=== PATIENT | female | born 1965 | race Caucasian/White ===

== ENCOUNTER 2017-09-01 12:27 | Inpatient (IN) | payer MEDICARE, OTHER ==
[2017-09-01 13:14] LABS: #Lymphocytes 1.4 thou/uL (1.20-3.40); #Monocytes 1.3 thou/uL (0.11-0.59); %Basophils 0.4 % (0.0-1.0); %Eosinophils 0.1 % (0.0-10.0); %Lymphocytes 13.2 % (21.0-51.0); %Monocytes 11.8 % (0.0-10.0); %Neutrophils 74.5 % (42.0-75.0); Hemoglobin 14.3 g/dL (12.0-16.0); Mean Corpuscular HGB CONC 34.8 g/dL (32.0-36.0); Mean Corpuscular Hemoglobin 30.2 pg (27.0-31.0); Mean Corpuscular Volume 86.9 fL (78.0-98.0); Mean Platelet Volume 8.3 fL (7.4-10.4); Platelet Count 165 thou/uL (130-400); RBC Distribution Width 13.9 % (11.5-14.5); Red Blood Cell (RBC) Count 4.74 mill/uL (4.20-5.40); White Blood Cell (WBC) Count 10.7 thou/uL (4.8-10.8)
[2017-09-01 13:36] LABS: ALT (SGPT) 58 U/L (8-55); AST (SGOT) 54 U/L (5-34); Albumin 4.1 g/dL (3.5-5.0); Alkaline Phosphatase 221 U/L (40-150); Anion Gap 20 mmol/L (10-20); BUN (Urea Nitrogen) 13 mg/dL (9.8-20.1); CK (CPK) 57 U/L (29-168); Calc. Creatinine Clearance 0 mL/min (70-130); Calcium 9.2 mg/dL (7.8-10.44); Carbon Dioxide 18 mmol/L (22-29); Chloride 90 mmol/L (98-107); Estimated GFR-MDRD 48; Glucose 470 mg/dL (70-105); Lipase 14 U/L (8-78); Protein, Total 8.1 g/dL (6.0-8.3); Sodium 124 mmol/L (136-145)
[2017-09-01 13:41] LABS: CKMB 0.2 ng/mL (0-6.6); Troponin I Less than 0.010 ng/mL (< 0.028)
--- NOTE | 2017-09-01 13:48 | RAD ---
CHEST UPRIGHT PORTABLE: Date: 09/01/17 HISTORY: 52-year-old female with history of weakness, dizziness, subjective fever, and diaphoresis. History of diabetes mellitus. COMPARISON: 04/21/16. FINDINGS: Minimal horizontal linear parenchymal changes noted in the right lower mid lung zone, having more the appearance of some subsegmental atelectasis, although the possibility of some mild atypical pneumoni a or pneumonitis is a possibility. The left lung is clear. Heart size is normal. IMPRESSION: Minimal horizontal linear parenchymal changes in the right mid lower lung zone, having more the appea eusebia of chronic change or subsegmental atelectasis. No other acute process. These changes are new or certainly more prominent than on the prior 04/21/16 study. POS: [facility]
[2017-09-01] MEDS ORDERED: Ibuprofen 800 MG TAB ONE (15:06)
[2017-09-01 15:13] LABS: Bilirubin Negative (Negative); Blood, Urine Small (Negative); Clarity CLOUDY (Clear); Glucose, Urine (Dipstick) >=1000 mg/dL (Negative); Leukocyte Moderate (Negative); Nitrite Negative (Negative); Protein, Urine (Dipstick) Trace mg/dL (Neg-Trace); Specific Gravity, Urine 1.023 (1.002-1.036)
[2017-09-01 15:18] LABS: Bacteria/HPF 4+ HPF (None Seen); Hyaline Casts/LPF 0-3 HYALINE CAST LPF (0-3 Hyaline); Pathc Cast-AUWi Flag 0.29 (0-2.49); RBC/HPF 0-3 HPF (0-3); Squamous Epithelial 0-3 HPF (0-3); Yeast-AUWi Flag 24.2 (0-25.0)
--- NOTE | 2017-09-01 15:23 | RAD ---
2 VIEWS OF ABDOMEN: Date: 09/01/17 INDICATION: Subjective fever, constipation, diaphoresis, weakness, and dizziness. FINDINGS: Left lateral decubitus and supine images of the abdomen demonstrate hernia mesh overlying the central abdomen. There are some gas-filled loops of small bowel with suggested differential air fluid levels suspicious for changes of some mild partial small bowel obstruction. There is a moderate amount of r etained stool within the colon. There is instrumentation involving the lower lumbar spine. Visualized aspects of the lungs are clear. IMPRESSION: A few gas and fluid-filled loops of small bowel within the upper central abdomen with suggestion of s ome differential fluid levels on the left lateral decubitus film may reflect a mild partial small bow el obstruction. There is a moderate amount of retained stool within the colon. The patient may benefi t from CT examination of the abdomen and pelvis for further characterization. POS: [facility]
[2017-09-01] MEDS ORDERED: Acetaminophen 500 MG TAB ONE (15:30)
[2017-09-01] MEDS ORDERED: Promethazine HCl 25 MG/ML VIAL ONE (15:48)
[2017-09-01] MEDS ORDERED: Acetaminophen 650 MG Suppository PR PRN (16:09)
[2017-09-01] MEDS ORDERED: RENALLY ADJUST ABX IVPB PRN (16:09)
[2017-09-01] MEDS ORDERED: Vancomycin HCl 1 GM in Premix Bag 1 BAG IVPB SCH (16:15)
[2017-09-01] MEDS ORDERED: Dextrose 50% Abboject 50 ML SYRINGE SLOW IVP PRN (16:34)
[2017-09-01] MEDS ORDERED: Dextrose 5% in Water 1,000 ML IV PRN (16:34)
[2017-09-01 16:41] LABS: BHCG - Serum Negative (NEGATIVE); Pregs Control Background? CLEAR/WHITE (CLR/WHITE); Pregs Control Bar Appear? YES (CONTROL BAR)
--- NOTE | 2017-09-01 17:22 | HP ---
PRIMARY CARE PROVIDER: Chelsi Alvarado NP CHIEF COMPLAINT: Abdominal pain. HISTORY OF PRESENT ILLNESS: Mr. Pastor is a pleasant 52-year-old lady who was seen at [facility] on 09/01/2017. She reports pain across her upper abdomen over the last 2 days. It is also radiating to her right fl ank now. She describes it as sharp, 9/10 at its worst, accompanied by nausea, but not by vomiting. She reports chronic constipation, since that it has been going on for the last 2 years. She denies a ny chest pain or shortness of breath. She reports fevers at home over the last 2 days. She reports that when she checked her temperature, it was 102 degrees Fahrenheit. REVIEW OF SYSTEMS: All other systems reviewed and found to be negative. PAST MEDICAL HISTORY: Hypothyroidism; anxiety; depression; bipolar disorder; hypertension; degenerat stephany joint disease; chronic low back pain, on chronic narcotics; gastroesophageal reflux disease; dysl ipidemia; obesity; asthma and chronic headaches. PAST SURGICAL HISTORY: Back surgery in 2004, cholecystectomy, umbilical hernia repair and s ection. ALLERGIES: ASPIRIN, IODINE, ERYTHROMYCIN, LATEX, SHELLFISH, and TYLENOL. The patient reports that s he is only allergic to TYLENOL FORMULATION ACETAMINOPHEN and in the past has taken acetaminophen in o ther forms without any reaction. Reaction to TYLENOL is rash. HOME MEDICATIONS: BuSpar 30 mg 2 times a day, clonidine 0.1 mg 2 times a day, Flexeril 10 mg daily, levothyroxine 100 mcg daily, Nexium 40 mg daily, Henrietta 1-2 tablets every 6 hours as needed, Lyrica 50 mg 3 times a day, oxycodone 30 mg 3 times a day, lisinopril/hydrochlorothiazide 20/12.5 mg daily, al buterol inhalation p.r.n. FAMILY HISTORY: Coronary artery disease in her father and brother. SOCIAL HISTORY: The patient reports rare alcohol use. She denies any tobacco use or recreational dr ug use. PHYSICAL EXAMINATION: GENERAL: Mr. Pastor is awake and alert, not in acute distress. VITAL SIGNS: Blood pressure is 150/107, pulse 129, respiratory rate 22, temperature 102 degrees Fahr enheit, and oxygen saturation 94% on room air. She is obese. EYES: No scleral icterus. No conjunctival pallor. ENT: Moist mucosal membranes, no oropharyngeal erythema or exudates. NECK: Supple, nontender. Trachea is midline. RESPIRATORY: Accessory muscles of breathing are not active. Chest wall movements are symmetric bila terally. LUNGS: Clear to auscultation without wheeze, rhonchi or crepitations. CARDIOVASCULAR: S1 and S2 are heard, regular and tachycardic. Peripheral pulses palpable. No carot id bruit, no pericardial rub. ABDOMEN: Distended, nontender, Conway sign is negative, bowel sounds sluggish, no hepatomegaly, no s plenomegaly. NEUROLOGIC: Cranial nerves II-XII intact. Deep tendon reflexes 2+. MUSCULOSKELETAL: Power is 5/5 in all 4 extremities. LYMPHATIC: No cervical lymphadenopathy. PSYCHIATRIC: Normal mood, normal affect. The patient is oriented to person, place, and time. DATABASE: Mr. Pastor's labs and investigations were reviewed. I reviewed her electrocardiogram, which shows sinus tachycardia, no ST changes to suggest an acute coronary syndrome. I also reviewed her chest x-ray, which does not show any pulmonary infiltrates. She also had abdominal x-rays, which show findings consistent with mild partial small-bowel obstruction. Radiologist recommends CT exami nation of the abdomen and pelvis for further characterization. She has normal white count, normal he moglobin, normal platelet count, decreased sodium of 124, elevated glucose of 458, decreased carbon d ioxide of 18, elevated creatinine of 1.18, last known creatinine 0.91 on 05/23/2014, elevated AST of 54, elevated ALT of 58, and these were elevated in the past as well, elevated alkaline phosphatase of 221, last known alkaline phosphatase is normal at 98 on 03/19/2017, normal troponin I, normal lipase and urinalysis that is positive for glucose, ketones, blood, and leukocyte esterase. ASSESSMENT AND PLAN: Mr. Pastor is a pleasant 52-year-old lady who was seen at [facility] on 09/01/2017. Her problem list includes: 1. Sepsis: She is presenting with sepsis, most likely source of infection in the urinary tract, alt willy other sources including intra-abdominal sources cannot be ruled out at this time. She will be admitted to the hospital for further management including intravenous fluids and intravenous antibiot ics. 2. Urinary tract infection. Start Zosyn and vancomycin to cover urinary and other sources. Follow cultures. 3. Abdominal pain: The patient will need a bowel obstruction ruled out. She is currently awaiting CT scan of the abdomen and pelvis as ordered by emergency room physician. 4. Hypothyroidism: Continue Synthroid when patient is able to take oral medications. 5. Hyponatremia: At least partially reflective of hyperglycemia. Start patient on Accu-Cheks and i nsulin sliding scale, continue intravenous fluids. 6. Acute renal insufficiency: Continue IV fluids, hold nephrotoxic medications and recheck creatini ne and electrolytes. 7. Hyperglycemia: The patient does not have a formal diagnosis of diabetes mellitus. Check hemoglo bin A1c, start patient on Accu-Cheks and insulin sliding scale. Anion gap is in the normal range. Many thanks for allowing me to participate in your patient's care. Please feel free to contact me wi th any questions or concerns. LEVEL OF RISK: High. LEVEL OF COMPLEXITY: High.
[2017-09-01] MEDS ORDERED: Piperacillin/Tazobactam 4.5 GM VIAL ONE (17:55)
[2017-09-01] MEDS ORDERED: cefTRIAXone\\ROCEPHIN 1 GM VIAL ONE (17:55)
--- NOTE | 2017-09-01 17:58 | CT ---
CT OF ABDOMEN AND PELVIS 09/01/17 COMPARISON: 12/11/10. HISTORY: Nausea, pain and headache. TECHNIQUE: Serial axial CT imaging at 5 mm intervals from lung bases through pubic symphysis with oral contrast. Coronal reformatted imaging obtained. FINDINGS: The lack of IV contrast limits assessment of the imaged viscera, the vascular structures, and for lym phadenopathy. The imaged lung bases are unremarkable. Cholecystectomy clips are present. No free intraperitoneal ai r is noted. Metallic densities are seen along the anterior aspect of the abdominal wall, evidence of prior hernia repair. Limited assessment of the liver, spleen, pancreas, adrenal glands, and kidneys is unremarkable with n o acute findings seen. No evidence for bowel inflammatory change or obstruction is seen. Review of the osseous structures demonstrates no worrisome lytic or blastic lesion. There is posterio r fusion hardware at the lumbosacral junction. IMPRESSION: No acute findings. POS: [facility]
[2017-09-01] MEDS: Piperacillin/Tazobactam 4.5 GM in Sodium Chloride 0.9% 100 ML IVPB SCH (19:37)
[2017-09-01] MEDS: Sodium Chloride 0.9% 1,000 ML IV SCH (19:38)
[2017-09-01 20:56] VITALS: BMI 45.8
[2017-09-01] MEDS ORDERED: Piperacillin/Tazobactam 4.5 GM in Sodium Chloride 0.9% 100 ML IVPB SCH (22:00)
[2017-09-01] MEDS ORDERED: Meropenem 1 GM in Sodium Chloride 0.9% 100 ML IVPB SCH (22:00)
[2017-09-01] MEDS: Ondansetron ODT 4 MG TAB PO PRN (22:22)
[2017-09-01] MEDS: HYDROcodone/Acetaminophen 10/325 mg Tablet PO PRN (22:36)
[2017-09-02] MEDS: Fioricet 325/50/40 mg Tablet PO PRN ×5 (00:25→23:28)
[2017-09-02] MEDS: Piperacillin/Tazobactam 4.5 GM in Sodium Chloride 0.9% 100 ML IVPB SCH ×3 (02:18→18:16)
[2017-09-02] MEDS: HYDROcodone/Acetaminophen 10/325 mg Tablet PO PRN ×4 (03:29→21:24)
[2017-09-02 04:21] LABS: #Monocytes 1.6 thou/uL (0.11-0.59); #Neutrophils 8.8 thou/uL (1.40-6.50); %Basophils 0.3 % (0.0-1.0); %Lymphocytes 22.3 % (21.0-51.0); %Monocytes 11.8 % (0.0-10.0); %Neutrophils 65.6 % (42.0-75.0); Hemoglobin 12.8 g/dL (12.0-16.0); Mean Corpuscular HGB CONC 34.8 g/dL (32.0-36.0); Mean Corpuscular Hemoglobin 30.6 pg (27.0-31.0); Mean Corpuscular Volume 88.1 fL (78.0-98.0); Platelet Count 157 thou/uL (130-400); RBC Distribution Width 13.9 % (11.5-14.5); Red Blood Cell (RBC) Count 4.18 mill/uL (4.20-5.40); White Blood Cell (WBC) Count 13.4 thou/uL (4.8-10.8)
[2017-09-02 04:35] LABS: Anion Gap 18 mmol/L (10-20); BUN (Urea Nitrogen) 8 mg/dL (9.8-20.1); Calc. Creatinine Clearance 151 mL/min (70-130); Calcium 8.5 mg/dL (7.8-10.44); Carbon Dioxide 20 mmol/L (22-29); Chloride 99 mmol/L (98-107); Estimated GFR-MDRD 71; Glucose 252 mg/dL (70-105); Potassium 3.7 mmol/L (3.5-5.1); Sodium 133 mmol/L (136-145)
[2017-09-02] MEDS: Enoxaparin Sodium 40 MG/0.4 ML SYRINGE SC SCH (09:00)
[2017-09-02] MEDS: Sodium Chloride 0.9% 1,000 ML IV SCH ×2 (12:11→21:26)
[2017-09-02] MEDS: Diclofenac Sodium 25 mg Tablet PO PRN ×2 (14:44→21:23)
[2017-09-02] MEDS: Metoclopramide HCl 10 MG TAB PO PRN ×2 (14:58→21:23)
--- NOTE | 2017-09-02 16:02 | PDOC.PN ---
- Subjective Encounter Start Date: 09/02/17 Encounter Start Time: 12:00 Pt seen for followup re: sepsis. Feels better. No fevers, cough or chills. Abdo pain is better. Has headache, describes it as chronic migraine. - Objective Vital Signs & Weight: Vital Signs (12 hours) Temp Pulse Resp BP Pulse Ox 09/02/17 11:00 98 F 88 16 142/86 H 98 09/02/17 09:00 98.0 F 82 16 94 L 09/02/17 08:25 98 F 89 18 132/85 98 09/02/17 05:40 97.9 F 89 18 132/85 98 Weight Admit Weight 266 lb 12 oz Weight 267 lb 0.029 oz I&O: 09/01/17 09/02/17 09/03/17 06:59 06:59 06:59 Intake Total 1125 Balance 1125 Result Diagrams: 09/02/17 03:52 09/02/17 03:52 Additional Labs: Accuchecks 09/02/17 09/02/17 09/01/17 11:13 05:41 22:32 POC Glucose 214 H 230 H 266 H Phys Exam - Physical Examination Morbid obesity HEENT: moist MMs, sclera anicteric, oral pharynx no lesions, 2+ tonsils Neck: no nodes, no JVD, supple, full ROM Respiratory: no wheezing, no rales, no rhonchi, clear to auscultation bilateral Cardiovascular: RRR, no rub S1, S2 Gastrointestinal: soft, non-tender, positive bowel sounds distention Neurological: moves all 4 limbs Psychiatric: normal affect, A&O x 3 Dx/Plan (1) Sepsis Code(s): A41.9 - SEPSIS, UNSPECIFIED ORGANISM Status: Acute Comment: due to UTI (2) UTI (urinary tract infection) Status: Acute Comment: continue IV antibiotics as below, follow cultures (3) Abdominal pain Code(s): R10.9 - UNSPECIFIED ABDOMINAL PAIN Status: Acute Comment: Improving , CT abdo/pelvis unremarkable (4) Hypothyroidism Code(s): E03.9 - HYPOTHYROIDISM, UNSPECIFIED Status: Chronic Comment: continue synthroid (5) Hypertension Code(s): I10 - ESSENTIAL (PRIMARY) HYPERTENSION Status: Chronic Comment: monitor vital signs, titrate antihypertensives as needed (6) GERD (gastroesophageal reflux disease) Code(s): K21.9 - GASTRO-ESOPHAGEAL REFLUX DISEASE WITHOUT ESOPHAGITIS Status: Chronic Comment: continue PPI (7) Migraine Code(s): G43.909 - MIGRAINE, UNSP, NOT INTRACTABLE, WITHOUT STATUS MIGRAINOSUS Status: Chronic Comment: continue home medications - Plan * . Review of Systems - Review of Systems Constitutional: negative: fever, chills, sweats, weakness, malaise Respiratory: negative: Cough, Shortness of Breath, Hemoptysis, Pleuritic Pain, Sputum Cardiovascular: negative: chest pain, palpitations, orthopnea, paroxysmal nocturnal dyspnea, edema, light headedness Gastrointestinal: Abdominal Pain, Constipation. negative: Nausea, Vomiting, Diarrhea, Melena, Hematochezia, Other Musculoskeletal: negative: Neck Pain, Shoulder Pain, Arm Pain, Back Pain, Hand Pain, Leg Pain, Foot Pain Skin: negative: Rash, Lesions, Hector, Bruising - Medications/Allergies Allergies/Adverse Reactions: Allergies Allergy/AdvReac Type Severity Reaction Status Date / Time aspirin Allergy Intermediate Hives Verified 11/09/15 18:12 iodine Allergy Intermediate Verified 10/22/12 21:55 acetaminophen [From Tylenol] Allergy Mild Verified 10/22/12 21:55 latex Allergy Mild Verified 10/22/12 21:56 shellfish derived Allergy Unknown Anaphylaxis Verified 09/02/17 00:19 azithromycin [From Zithromax] Allergy Verified 10/22/12 21:54 morphine Allergy Verified 09/01/17 20:55 Medications: Current Medications Acetaminophen/Butalbital/Caffeine (Fioricet) 1 tab PO Q4H PRN PRN Reason: Migraine Headache Stop: 09/07/17 00:04 Last Admin: 09/02/17 13:18 Dose: 1 tab Hydrocodone Bitart/Acetaminophen (Provencal 10/325) 1 tab PO Q4H PRN PRN Reason: Migraine Headache Last Admin: 09/02/17 14:43 Dose: 1 tab Dextrose/Water (Dextrose 50%) 25 gm SLOW IVP PRN PRN PRN Reason: Hypoglycemia Diclofenac Sodium (Voltaren) 50 mg PO QIDPRN PRN PRN Reason: Pain Last Admin: 09/02/17 14:44 Dose: 50 mg Enoxaparin Sodium (Lovenox) 40 mg SC 0900 STEVE Last Admin: 09/02/17 09:00 Dose: 40 mg Glucagon (Glucagon) 1 mg IM PRN PRN PRN Reason: Hypoglycemia Sodium Chloride (Normal Saline 0.9%) 1,000 mls @ 70 mls/hr IV .[id number] [facility] Last Admin: 09/02/17 12:11 Dose: 1,000 mls Dextrose/Water (D5w) 1,000 mls @ 0 mls/hr IV .Q0M PRN; As Directed PRN Reason: Hypoglycemia Vancomycin HCl 2 gm/ Sodium (Chloride) 500 mls @ 250 mls/hr IVPB 1800 [facility] Last Admin: 09/01/17 21:03 Dose: 500 mls Piperacillin Sod/Tazobactam (Sod 4.5 gm/ Sodium Chloride) 100 mls @ 200 mls/hr IVPB 0200,1000,1800 [facility] Last Admin: 09/02/17 12:08 Dose: 100 mls Insulin Human Lispro (Humalog) 0 units SC .MILD SLIDING SCALE PRN PRN Reason: Mild Correctional Scale Metoclopramide HCl (Reglan) 5 mg PO QIDPRN PRN PRN Reason: NAUSEA Last Admin: 09/02/17 14:58 Dose: 5 mg Miscellaneous Medication (Pharmacy To Dose) 1 each IVPB PRN PRN PRN Reason: Pharmacy to dose Ondansetron HCl (Zofran Odt) 4 mg PO Q6H PRN PRN Reason: Nausea/Vomiting Last Admin: 09/01/17 22:22 Dose: 4 mg Sodium Chloride (Flush - Normal Saline) 10 ml IVF Q12HR STEVE Last Admin: 09/02/17 09:14 Dose: Not Given Sodium Chloride (Flush - Normal Saline) 10 ml IVF PRN PRN PRN Reason: Saline Flush
[2017-09-02] MEDS: Promethazine HCl 25 MG in Sodium Chloride 0.9% 50 ML IVPB PRN (20:43)
[2017-09-03] MEDS: Piperacillin/Tazobactam 4.5 GM in Sodium Chloride 0.9% 100 ML IVPB SCH ×3 (01:05→17:52)
[2017-09-03] MEDS: Sodium Chloride 0.9% 1,000 ML IV SCH ×2 (05:15→23:34)
[2017-09-03 05:28] LABS: #Eosinphils 0.1 thou/uL (0.0-0.7); #Lymphocytes 2.3 thou/uL (1.20-3.40); #Monocytes 1.3 thou/uL (0.11-0.59); #Neutrophils 5.6 thou/uL (1.40-6.50); %Basophils 0.4 % (0.0-1.0); %Eosinophils 0.5 % (0.0-10.0); %Lymphocytes 25.2 % (21.0-51.0); %Monocytes 13.9 % (0.0-10.0); %Neutrophils 59.9 % (42.0-75.0); Mean Corpuscular HGB CONC 33.1 g/dL (32.0-36.0); Mean Corpuscular Hemoglobin 28.9 pg (27.0-31.0); Mean Corpuscular Volume 87.5 fL (78.0-98.0); Platelet Count 162 thou/uL (130-400); RBC Distribution Width 13.6 % (11.5-14.5); Red Blood Cell (RBC) Count 4.13 mill/uL (4.20-5.40); White Blood Cell (WBC) Count 9.3 thou/uL (4.8-10.8)
[2017-09-03 05:34] LABS: Anion Gap 17 mmol/L (10-20); BUN (Urea Nitrogen) 6 mg/dL (9.8-20.1); Calc. Creatinine Clearance 159 mL/min (70-130); Carbon Dioxide 18 mmol/L (22-29); Chloride 104 mmol/L (98-107); Estimated GFR-MDRD 76; Glucose 227 mg/dL (70-105); Potassium 3.3 mmol/L (3.5-5.1); Sodium 136 mmol/L (136-145)
[2017-09-03] MEDS: HYDROcodone/Acetaminophen 10/325 mg Tablet PO PRN ×2 (06:04→10:10)
[2017-09-03] MEDS: Enoxaparin Sodium 40 MG/0.4 ML SYRINGE SC SCH (07:50)
[2017-09-03] MEDS: Metoclopramide HCl 10 MG TAB PO PRN (08:22)
[2017-09-03] MEDS: Promethazine HCl 25 MG in Sodium Chloride 0.9% 50 ML IVPB PRN (08:22)
[2017-09-03] MEDS: Diclofenac Sodium 25 mg Tablet PO PRN (08:22)
[2017-09-03] MEDS ORDERED: clonazePAM 0.5 MG TAB PO PRN (09:14)
[2017-09-03] MEDS ORDERED: Metoclopramide 10 MG/10 ML UDCUP PO PRN (09:14)
[2017-09-03] MEDS ORDERED: ACETAMINOPHEN PO PRN (09:14)
[2017-09-03] MEDS ORDERED: BUTALBITAL PO PRN (09:14)
[2017-09-03] MEDS ORDERED: clonazePAM 1 MG TAB PO PRN (09:14)
[2017-09-03] MEDS: HYDROmorphone 2 MG TAB PO SCH ×3 (11:41→23:32)
[2017-09-03] MEDS: HumaLOG 300 UNITS/3 ML VIAL SC PRN ×3 (11:42→20:30)
[2017-09-03] MEDS: HYDROcodone/Acetaminophen 10/325 mg Tablet PO SCH ×3 (12:26→20:22)
[2017-09-03] MEDS ORDERED: DICLOFENAC POTASSIUM 50 MG PO SCH (13:00)
[2017-09-03] MEDS: Pregabalin 75 MG CAP PO SCH ×2 (15:01→20:23)
[2017-09-03] MEDS: Cyclobenzaprine 10 MG TAB PO SCH ×2 (15:02→20:22)
--- NOTE | 2017-09-03 17:20 | PDOC.PN ---
- Subjective Encounter Start Date: 09/03/17 Encounter Start Time: 08:20 Pt seen for followup re: sepsis. Feels better. No abdo pain. - Objective MAR Reviewed: Yes Vital Signs & Weight: Vital Signs (12 hours) Temp Pulse Resp BP Pulse Ox 09/03/17 16:45 97.8 F 89 18 110/72 95 09/03/17 11:28 99.0 F 104 H 16 135/78 96 09/03/17 10:00 98.9 F 110 H 09/03/17 08:00 98.9 F 110 H 16 09/03/17 07:37 101.1 F H 107 H 16 152/87 H 98 09/03/17 05:35 98.4 F 94 18 124/78 99 Weight Admit Weight 266 lb 12 oz Weight 267 lb 0.029 oz I&O: 09/02/17 09/03/17 09/04/17 06:59 06:59 06:59 Intake Total 1125 1789 480 Balance 1125 1789 480 Result Diagrams: 09/03/17 05:01 09/03/17 05:01 Additional Labs: Accuchecks 09/03/17 09/03/17 09/02/17 11:33 05:21 20:43 POC Glucose 226 H 224 H 282 H Phys Exam - Physical Examination Constitutional: NAD HEENT: moist MMs, sclera anicteric, oral pharynx no lesions, 2+ tonsils Neck: no nodes, no JVD, supple, full ROM Respiratory: no wheezing, no rales, no rhonchi, clear to auscultation bilateral Cardiovascular: RRR, no rub S1, S2 Gastrointestinal: soft, non-tender, no distention, positive bowel sounds Neurological: moves all 4 limbs Psychiatric: normal affect, A&O x 3 Dx/Plan (1) Sepsis Code(s): A41.9 - SEPSIS, UNSPECIFIED ORGANISM Status: Acute Comment: due to UTI, Improving (2) UTI (urinary tract infection) Status: Acute Comment: with Klebsiella. Pt continues to spike fevers, continue IV antibiotics today, reassess tomorrow. (3) Hypothyroidism Code(s): E03.9 - HYPOTHYROIDISM, UNSPECIFIED Status: Chronic Comment: on synthroid (4) Hypertension Code(s): I10 - ESSENTIAL (PRIMARY) HYPERTENSION Status: Chronic Comment: titrate antihypertensives as needed (5) GERD (gastroesophageal reflux disease) Code(s): K21.9 - GASTRO-ESOPHAGEAL REFLUX DISEASE WITHOUT ESOPHAGITIS Status: Chronic Comment: continue PPI (6) Migraine Code(s): G43.909 - MIGRAINE, UNSP, NOT INTRACTABLE, WITHOUT STATUS MIGRAINOSUS Status: Chronic Comment: continue home medications (7) Abdominal pain Code(s): R10.9 - UNSPECIFIED ABDOMINAL PAIN Status: Resolved - Plan * . Review of Systems - Review of Systems Constitutional: fever, chills. negative: sweats, weakness, malaise Respiratory: negative: Cough, Shortness of Breath, SOB with Excertion, Pleuritic Pain, Wheezing Cardiovascular: negative: chest pain, palpitations, orthopnea, paroxysmal nocturnal dyspnea, edema, light headedness Gastrointestinal: Nausea, Other. negative: Vomiting, Abdominal Pain, Diarrhea, Constipation, Melena, Hematochezia - Medications/Allergies Allergies/Adverse Reactions: Allergies Allergy/AdvReac Type Severity Reaction Status Date / Time aspirin Allergy Intermediate Hives Verified 11/09/15 18:12 iodine Allergy Intermediate Verified 10/22/12 21:55 acetaminophen [From Tylenol] Allergy Mild Verified 10/22/12 21:55 latex Allergy Mild Verified 10/22/12 21:56 shellfish derived Allergy Unknown Anaphylaxis Verified 09/02/17 00:19 azithromycin [From Zithromax] Allergy Verified 10/22/12 21:54 morphine Allergy Verified 09/01/17 20:55 Medications: Current Medications Acetaminophen/Butalbital/Caffeine (Fioricet) 1 tab PO Q4H PRN PRN Reason: Migraine Headache Stop: 09/07/17 00:04 Last Admin: 09/02/17 23:28 Dose: 1 tab Hydrocodone Bitart/Acetaminophen (Brodnax 10/325) 1 tab PO Q4H PRN PRN Reason: Migraine Headache Last Admin: 09/03/17 10:10 Dose: 1 tab Hydrocodone Bitart/Acetaminophen (Brodnax 10/325) 1 tab PO Q4HR [facility] Last Admin: 09/03/17 15:03 Dose: 1 tab Amlodipine Besylate (Norvasc) 5 mg PO DAILY STEVE Buspirone HCl (Buspar) 15 mg PO BID [facility]EV[facility] Chlorzoxazone (Parafon Dsc) 500 mg PO Q6HR [facility]EVE Last Admin: 09/03/17 12:23 Dose: 500 mg Clonazepam (Klonopin) 0.5 mg PO Q12H PRN PRN Reason: Anxiety Clonazepam (Klonopin) 1 mg PO PRN PRN PRN Reason: Anxiety Clonidine (Catapres) 0.1 mg PO BID [facility] Cyclobenzaprine HCl (Flexeril) 10 mg PO TID [facility] Last Admin: 09/03/17 15:02 Dose: 10 mg Dextrose/Water (Dextrose 50%) 25 gm SLOW IVP PRN PRN PRN Reason: Hypoglycemia Diclofenac Sodium (Voltaren) 50 mg PO QIDPRN PRN PRN Reason: Pain Last Admin: 09/03/17 08:22 Dose: 50 mg Enoxaparin Sodium (Lovenox) 40 mg SC 0900 [facility] Last Admin: 09/03/17 07:50 Dose: 40 mg Glucagon (Glucagon) 1 mg IM PRN PRN PRN Reason: Hypoglycemia Hydromorphone HCl (Dilaudid) 4 mg PO Q6HR [facility] Last Admin: 09/03/17 11:41 Dose: 4 mg Sodium Chloride (Normal Saline 0.9%) 1,000 mls @ 70 mls/hr IV .[id number] [facility] Last Admin: 09/03/17 05:15 Dose: 1,000 mls Dextrose/Water (D5w) 1,000 mls @ 0 mls/hr IV .Q0M PRN; As Directed PRN Reason: Hypoglycemia Piperacillin Sod/Tazobactam (Sod 4.5 gm/ Sodium Chloride) 100 mls @ 200 mls/hr IVPB 0200,1000,1800 [facility] Last Admin: 09/03/17 08:22 Dose: 100 mls Insulin Human Lispro (Humalog) 0 units SC .MILD SLIDING SCALE PRN PRN Reason: Mild Correctional Scale Last Admin: 09/03/17 11:42 Dose: 3 unit Levothyroxine Sodium (Synthroid) 100 mcg PO 0600 [facility] Lisinopril (Zestril) 20 mg PO DAILY [facility] Metoclopramide HCl (Reglan) 5 mg PO QIDPRN PRN PRN Reason: NAUSEA Last Admin: 09/03/17 08:22 Dose: 5 mg Metoclopramide HCl (Reglan) 5 mg PO QID PRN PRN Reason: Headache Miscellaneous Medication (Pharmacy To Dose) 1 each IVPB PRN PRN PRN Reason: Pharmacy to dose Ondansetron HCl (Zofran Odt) 4 mg PO Q6H PRN PRN Reason: Nausea/Vomiting Last Admin: 09/01/17 22:22 Dose: 4 mg Pantoprazole Sodium (Protonix) 40 mg PO DAILY STEVE (Butalbital/Acetaminophen [Bupap ] 1 Tablet) Hm Med 0 each PO Q4HR PRN PRN Reason: Headache (Diclofenac Potassium [Cambia] 50 Mg) Hm Med 0 each PO QID STEVE (Oxycodone Myristate [Xtampza Er] 18 Mg) Hm Med 0 each PO BID STEVE Pregabalin (Lyrica) 150 mg PO TID STEVE Last Admin: 09/03/17 15:01 Dose: 150 mg Quetiapine Fumarate (Seroquel) 25 mg PO QID [facility] Last Admin: 09/03/17 11:41 Dose: 25 mg Sodium Chloride (Flush - Normal Saline) 10 ml IVF Q12HR [facility] Last Admin: 09/03/17 07:51 Dose: Not Given Sodium Chloride (Flush - Normal Saline) 10 ml IVF PRN PRN PRN Reason: Saline Flush Venlafaxine HCl (Effexor Xr) 225 mg PO DAILY [facility]
[2017-09-03] MEDS: Ondansetron ODT 4 MG TAB PO PRN (17:54)
[2017-09-03] MEDS: cloNIDine 0.1 MG TAB PO SCH (20:21)
[2017-09-03] MEDS: busPIRone HCl 5 MG TAB PO SCH (20:22)
[2017-09-03] MEDS ORDERED: OXYCODONE MYRISTATE 18 MG PO SCH (21:00)
[2017-09-04] MEDS: HYDROcodone/Acetaminophen 10/325 mg Tablet PO SCH ×6 (01:22→20:24)
[2017-09-04] MEDS: Piperacillin/Tazobactam 4.5 GM in Sodium Chloride 0.9% 100 ML IVPB SCH (01:23)
[2017-09-04] MEDS: Fioricet 325/50/40 mg Tablet PO PRN (04:24)
[2017-09-04 05:20] LABS: Anion Gap 15 mmol/L (10-20); BUN (Urea Nitrogen) 5 mg/dL (9.8-20.1); Calc. Creatinine Clearance 163 mL/min (70-130); Calcium 9.1 mg/dL (7.8-10.44); Carbon Dioxide 21 mmol/L (22-29); Chloride 101 mmol/L (98-107); Estimated GFR-MDRD 78; Glucose 226 mg/dL (70-105); Sodium 134 mmol/L (136-145)
[2017-09-04] MEDS: HYDROmorphone 2 MG TAB PO SCH ×4 (05:26→23:01)
[2017-09-04] MEDS: Levothyroxine Sodium 100 MCG TAB PO SCH (05:26)
[2017-09-04] MEDS: HumaLOG 300 UNITS/3 ML VIAL SC PRN ×4 (05:28→20:28)
[2017-09-04 05:37] LABS: #Eosinphils 0.1 thou/uL (0.0-0.7); #Lymphocytes 2.4 thou/uL (1.20-3.40); #Monocytes 1.3 thou/uL (0.11-0.59); %Basophils 0.3 % (0.0-1.0); %Eosinophils 1.3 % (0.0-10.0); %Lymphocytes 27.5 % (21.0-51.0); %Monocytes 14.6 % (0.0-10.0); %Neutrophils 56.3 % (42.0-75.0); Hemoglobin 11.1 g/dL (12.0-16.0); Mean Corpuscular HGB CONC 32.9 g/dL (32.0-36.0); Mean Corpuscular Hemoglobin 29.2 pg (27.0-31.0); Mean Corpuscular Volume 88.6 fL (78.0-98.0); Mean Platelet Volume 8.3 fL (7.4-10.4); Platelet Count 155 thou/uL (130-400); Red Blood Cell (RBC) Count 3.81 mill/uL (4.20-5.40); White Blood Cell (WBC) Count 8.8 thou/uL (4.8-10.8)
[2017-09-04] MEDS: Pregabalin 75 MG CAP PO SCH ×3 (08:18→20:25)
[2017-09-04] MEDS: Amlodipine 5 MG TAB PO SCH (08:19)
[2017-09-04] MEDS: Cyclobenzaprine 10 MG TAB PO SCH ×3 (08:19→20:24)
[2017-09-04] MEDS: Venlafaxine HCl XR 75 MG CAP PO SCH (08:20)
[2017-09-04] MEDS: busPIRone HCl 5 MG TAB PO SCH ×2 (08:23→20:23)
[2017-09-04] MEDS: Lisinopril 20 MG TAB PO SCH (08:23)
[2017-09-04] MEDS: cloNIDine 0.1 MG TAB PO SCH ×2 (08:24→20:24)
[2017-09-04] MEDS: Enoxaparin Sodium 40 MG/0.4 ML SYRINGE SC SCH (08:24)
[2017-09-04] MEDS: Cefdinir 300 MG CAP PO SCH ×2 (11:17→20:23)
--- NOTE | 2017-09-04 15:04 | PDOC.PN ---
- Subjective Encounter Start Date: 09/04/17 Encounter Start Time: 08:20 Pt seen for followup re: UTI. Feels better. No chest pain, shortness of breath , fevers or chills. - Objective MAR Reviewed: Yes Vital Signs & Weight: Vital Signs (12 hours) Temp Pulse Resp BP BP Pulse Ox 09/04/17 11:23 97.8 F 99 18 125/75 92 L 09/04/17 08:24 114/76 09/04/17 08:23 114/76 09/04/17 08:19 91 114/76 09/04/17 08:00 98.8 F 91 18 92 L 09/04/17 07:41 98.8 F 91 18 114/76 92 L 09/04/17 04:00 97.9 F 85 16 105/71 94 L Weight Admit Weight 266 lb 12 oz Weight 267 lb 0.029 oz I&O: 09/03/17 09/04/17 09/05/17 06:59 06:59 06:59 Intake Total 1789 4270 Balance 1789 4270 Result Diagrams: 09/04/17 04:17 09/04/17 04:17 Additional Labs: Accuchecks 09/04/17 09/04/17 09/03/17 11:24 05:26 20:01 POC Glucose 239 H 215 H 260 H 09/03/17 16:45 POC Glucose 233 H Phys Exam - Physical Examination Morbid obesity HEENT: moist MMs, sclera anicteric, oral pharynx no lesions, 2+ tonsils Neck: no nodes, no JVD, supple, full ROM Respiratory: no wheezing, no rales, no rhonchi, clear to auscultation bilateral Cardiovascular: RRR, no rub S1, S2 Gastrointestinal: soft, non-tender, positive bowel sounds distention Neurological: moves all 4 limbs Psychiatric: normal affect, A&O x 3 Skin: no rash Dx/Plan (1) UTI (urinary tract infection) Status: Acute Comment: with Klebsiella. Switch to cefdinir, observe. Pt is improving, afebrile. (2) Hypothyroidism Code(s): E03.9 - HYPOTHYROIDISM, UNSPECIFIED Status: Chronic Comment: continue synthroid (3) Hypertension Code(s): I10 - ESSENTIAL (PRIMARY) HYPERTENSION Status: Chronic Comment: controlled (4) GERD (gastroesophageal reflux disease) Code(s): K21.9 - GASTRO-ESOPHAGEAL REFLUX DISEASE WITHOUT ESOPHAGITIS Status: Chronic Comment: stable (5) Migraine Code(s): G43.909 - MIGRAINE, UNSP, NOT INTRACTABLE, WITHOUT STATUS MIGRAINOSUS Status: Chronic Comment: continue home medications (6) Abdominal pain Code(s): R10.9 - UNSPECIFIED ABDOMINAL PAIN Status: Resolved (7) Sepsis Code(s): A41.9 - SEPSIS, UNSPECIFIED ORGANISM Status: Resolved - Plan * . Review of Systems - Review of Systems Constitutional: negative: fever, chills, sweats, weakness, malaise Respiratory: negative: Cough, Shortness of Breath, SOB with Excertion, Pleuritic Pain, Wheezing Cardiovascular: negative: chest pain, palpitations, orthopnea, paroxysmal nocturnal dyspnea, edema, light headedness Gastrointestinal: negative: Nausea, Vomiting, Abdominal Pain, Diarrhea, Constipation, Melena, Hematochezia Genitourinary: negative: Dysuria, Frequency, Incontinence, Hematuria, Retention Skin: negative: Rash, Lesions, Hector, Bruising - Medications/Allergies Allergies/Adverse Reactions: Allergies Allergy/AdvReac Type Severity Reaction Status Date / Time aspirin Allergy Intermediate Hives Verified 11/09/15 18:12 iodine Allergy Intermediate Verified 10/22/12 21:55 acetaminophen [From Tylenol] Allergy Mild Verified 10/22/12 21:55 latex Allergy Mild Verified 10/22/12 21:56 shellfish derived Allergy Unknown Anaphylaxis Verified 09/02/17 00:19 azithromycin [From Zithromax] Allergy Verified 10/22/12 21:54 morphine Allergy Verified 09/01/17 20:55 Medications: Current Medications Acetaminophen/Butalbital/Caffeine (Fioricet) 1 tab PO Q4H PRN PRN Reason: Migraine Headache Stop: 09/07/17 00:04 Last Admin: 09/04/17 04:24 Dose: 1 tab Hydrocodone Bitart/Acetaminophen ([place] 10/325) 1 tab PO Q4H PRN PRN Reason: Migraine Headache Last Admin: 09/03/17 10:10 Dose: 1 tab Hydrocodone Bitart/Acetaminophen ([place] 10/325) 1 tab PO Q4HR STEVE Last Admin: 09/04/17 12:47 Dose: 1 tab Amlodipine Besylate (Norvasc) 5 mg PO DAILY [facility] Last Admin: 09/04/17 08:19 Dose: 5 mg Buspirone HCl (Buspar) 15 mg PO BID [facility] Last Admin: 09/04/17 08:23 Dose: 15 mg Cefdinir (Omnicef) 300 mg PO BID [facility] Last Admin: 09/04/17 11:17 Dose: 300 mg Chlorzoxazone (Parafon Dsc) 500 mg PO Q6HR [facility] Last Admin: 09/04/17 12:14 Dose: 500 mg Clonazepam (Klonopin) 0.5 mg PO Q12H PRN PRN Reason: Anxiety Clonazepam (Klonopin) 1 mg PO PRN PRN PRN Reason: Anxiety Clonidine (Catapres) 0.1 mg PO BID [facility] Last Admin: 09/04/17 08:24 Dose: 0.1 mg Cyclobenzaprine HCl (Flexeril) 10 mg PO TID [facility] Last Admin: 09/04/17 08:19 Dose: 10 mg Dextrose/Water (Dextrose 50%) 25 gm SLOW IVP PRN PRN PRN Reason: Hypoglycemia Diclofenac Sodium (Voltaren) 50 mg PO QIDPRN PRN PRN Reason: Pain Last Admin: 09/03/17 08:22 Dose: 50 mg Enoxaparin Sodium (Lovenox) 40 mg SC 0900 [facility] Last Admin: 09/04/17 08:24 Dose: 40 mg Glucagon (Glucagon) 1 mg IM PRN PRN PRN Reason: Hypoglycemia Hydromorphone HCl (Dilaudid) 4 mg PO Q6HR [facility] Last Admin: 09/04/17 11:18 Dose: 4 mg Sodium Chloride (Normal Saline 0.9%) 1,000 mls @ 70 mls/hr IV .[id number] [facility] Last Admin: 09/03/17 23:34 Dose: 1,000 mls Dextrose/Water (D5w) 1,000 mls @ 0 mls/hr IV .Q0M PRN; As Directed PRN Reason: Hypoglycemia Insulin Human Lispro (Humalog) 0 units SC .MILD SLIDING SCALE PRN PRN Reason: Mild Correctional Scale Last Admin: 09/04/17 12:13 Dose: 3 unit Levothyroxine Sodium (Synthroid) 100 mcg PO 0600 [facility] Last Admin: 09/04/17 05:26 Dose: 100 mcg Lisinopril (Zestril) 20 mg PO DAILY [facility] Last Admin: 09/04/17 08:23 Dose: 20 mg Metoclopramide HCl (Reglan) 5 mg PO QIDPRN PRN PRN Reason: NAUSEA Last Admin: 09/03/17 08:22 Dose: 5 mg Metoclopramide HCl (Reglan) 5 mg PO QID PRN PRN Reason: Headache Miscellaneous Medication (Pharmacy To Dose) 1 each IVPB PRN PRN PRN Reason: Pharmacy to dose Ondansetron HCl (Zofran Odt) 4 mg PO Q6H PRN PRN Reason: Nausea/Vomiting Last Admin: 09/03/17 17:54 Dose: 4 mg Pantoprazole Sodium (Protonix) 40 mg PO DAILY [facility] Last Admin: 09/04/17 08:22 Dose: 40 mg (Butalbital/Acetaminophen [Bupap ] 1 Tablet) Hm Med 0 each PO Q4HR PRN PRN Reason: Headache (Diclofenac Potassium [Cambia] 50 Mg) Hm Med 0 each PO QID [facility] (Oxycodone Myristate [Xtampza Er] 18 Mg) Hm Med 0 each PO BID [facility] Potassium Chloride (K-Dur) 40 meq PO Q6H [facility] Stop: 09/04/17 21:01 Pregabalin (Lyrica) 150 mg PO TID [facility] Last Admin: 09/04/17 08:18 Dose: 150 mg Quetiapine Fumarate (Seroquel) 25 mg PO QID [facility] Last Admin: 09/04/17 12:48 Dose: 25 mg Sodium Chloride (Flush - Normal Saline) 10 ml IVF Q12HR [facility] Last Admin: 09/04/17 08:25 Dose: Not Given Sodium Chloride (Flush - Normal Saline) 10 ml IVF PRN PRN PRN Reason: Saline Flush Venlafaxine HCl (Effexor Xr) 225 mg PO DAILY [facility] Last Admin: 09/04/17 08:20 Dose: 225 mg
[2017-09-04] MEDS: Sodium Chloride 0.9% 1,000 ML IV SCH (15:36)
[2017-09-04] MEDS: Potassium Chloride 20 MEQ TAB PO SCH ×2 (17:30→23:00)
[2017-09-05] MEDS: HYDROcodone/Acetaminophen 10/325 mg Tablet PO SCH ×3 (00:49→09:12)
[2017-09-05] MEDS: Fioricet 325/50/40 mg Tablet PO PRN (00:50)
[2017-09-05] MEDS: Sodium Chloride 0.9% 1,000 ML IV SCH (04:40)
[2017-09-05] MEDS: Levothyroxine Sodium 100 MCG TAB PO SCH (05:29)
[2017-09-05] MEDS: HYDROmorphone 2 MG TAB PO SCH ×2 (05:29→11:59)
[2017-09-05] MEDS: HumaLOG 300 UNITS/3 ML VIAL SC PRN ×2 (05:31→12:01)
[2017-09-05] MEDS: Cefdinir 300 MG CAP PO SCH (09:10)
[2017-09-05] MEDS: Pregabalin 75 MG CAP PO SCH (09:10)
[2017-09-05] MEDS: busPIRone HCl 5 MG TAB PO SCH (09:10)
[2017-09-05] MEDS: Venlafaxine HCl XR 75 MG CAP PO SCH (09:12)
[2017-09-05] MEDS: Amlodipine 5 MG TAB PO SCH (09:13)
[2017-09-05] MEDS: Lisinopril 20 MG TAB PO SCH (09:14)
[2017-09-05] MEDS: Cyclobenzaprine 10 MG TAB PO SCH (09:14)
[2017-09-05] MEDS: cloNIDine 0.1 MG TAB PO SCH (09:15)
[2017-09-05] MEDS: Enoxaparin Sodium 40 MG/0.4 ML SYRINGE SC SCH (09:15)
[2017-09-05 11:16] LABS: Hemoglobin A1c 11.9 % (4.0-6.0)
[2017-09-05 11:16] LABS: #Eosinphils 0.1 thou/uL (0.0-0.7); #Lymphocytes 2.3 thou/uL (1.20-3.40); #Monocytes 0.8 thou/uL (0.11-0.59); #Neutrophils 2.5 thou/uL (1.40-6.50); %Basophils 0.6 % (0.0-1.0); %Eosinophils 1.4 % (0.0-10.0); %Lymphocytes 40.5 % (21.0-51.0); %Monocytes 14.2 % (0.0-10.0); %Neutrophils 43.2 % (42.0-75.0); Hemoglobin 11.3 g/dL (12.0-16.0); Mean Corpuscular HGB CONC 33.9 g/dL (32.0-36.0); Mean Corpuscular Hemoglobin 30.2 pg (27.0-31.0); Mean Corpuscular Volume 89.2 fL (78.0-98.0); Mean Platelet Volume 7.6 fL (7.4-10.4); Platelet Count 160 thou/uL (130-400); RBC Distribution Width 13.9 % (11.5-14.5); Red Blood Cell (RBC) Count 3.74 mill/uL (4.20-5.40); White Blood Cell (WBC) Count 5.7 thou/uL (4.8-10.8)
[2017-09-05 11:26] LABS: Anion Gap 14 mmol/L (10-20); BUN (Urea Nitrogen) 6 mg/dL (9.8-20.1); Calc. Creatinine Clearance 179 mL/min (70-130); Calcium 9.2 mg/dL (7.8-10.44); Carbon Dioxide 25 mmol/L (22-29); Chloride 102 mmol/L (98-107); Estimated GFR-MDRD 87; Glucose 252 mg/dL (70-105); Potassium 3.4 mmol/L (3.5-5.1); Sodium 138 mmol/L (136-145)
[2017-09-05 11:41] VITALS: BP 125/78; TEMP 97.8
[2017-09-05] MEDS ORDERED: Potassium Chloride 20 MEQ TAB PO SCH (11:45)
--- NOTE | 2017-09-05 17:54 | DIS ---
DATE OF ADMISSION: 09/01/2017 DATE OF DISCHARGE: 09/05/2017 PRIMARY CARE PROVIDER: Chelsi Alvarado N.P. DISCHARGE DIAGNOSES: 1. Sepsis. 2. Urinary tract infection. 3. Diabetes mellitus. CONDITION OF PATIENT ON THE DAY OF DISCHARGE: Stable. I assessed Ms. Pastor on the day of discha rge. She denies any chest pain or shortness of breath. She denies any nausea or vomiting. Vital si gns are stable. S1 and S2 are heard, regular. Lungs are clear to auscultation bilaterally. HOSPITAL COURSE: Ms. Pastor is a pleasant 52-year-old lady who was admitted to [facility] on 09/05/2017 for sepsis, abdominal pain and urinary tract infection. There was also concern about bowel obstruction. However, CT scan of the abdomen and pelvis did not show any acute findings. She was treated with insulin by sliding scale. She will likely need to have her diabetes medications adjusted through her primary care provider's office. Hemoglobin A1c during this hospitalization was 11.9. Urine cultures grew Klebsiella pneumonia which was pansensitive. She is being discharged home on cef dinir 300 mg 2 times a day for 1 more week. DISCHARGE MEDICATIONS: As dictated on my history and physical note dated 09/01/2017. In addition, s he is being discharged home on her home diabetes medications as well as cefdinir 300 mg 2 times a day for 7 more days. On the day of discharge, she has a white count of 5,700, hemoglobin 11.3, platelet count 160,000. So dium 138, potassium 3.4, which is being replaced, blood urea nitrogen 6 and creatinine 0.71. Many thanks for allowing me to participate in your patient's care. Please feel free to contact me wi th any questions or concerns. DISCHARGE DESTINATION: Home. TOTAL AMOUNT OF TIME SPENT COORDINATING THIS DISCHARGE: 33 minutes.
== END 2017-09-05 12:51 | disposition home or self-care (01) | DRG 872 ==
LOC: ERS 12:27 → T4-B 18:52
PROVIDERS: ADMIT Internal Medicine; ATTEND Internal Medicine
DX: A41.9 Sepsis, unspecified organism (principal); N39.0 Urinary tract infection, site not specified; E87.1 Hypo-osmolality and hyponatremia; Z68.42 Body mass index [BMI] 45.0-49.9, adult; B96.1 Klebsiella pneumoniae [K. pneumoniae] as the cause of diseases classified elsewhere; E66.01 Morbid (severe) obesity due to excess calories; E03.9 Hypothyroidism, unspecified; I10 Essential (primary) hypertension; K21.9 Gastro-esophageal reflux disease without esophagitis; G43.909 Migraine, unspecified, not intractable, without status migrainosus; G89.29 Other chronic pain; M54.9 Dorsalgia, unspecified; F32.9 Major depressive disorder, single episode, unspecified; F41.9 Anxiety disorder, unspecified; E78.5 Hyperlipidemia, unspecified; M19.90 Unspecified osteoarthritis, unspecified site; Z90.49 Acquired absence of other specified parts of digestive tract; N28.9 Disorder of kidney and ureter, unspecified; E11.9 Type 2 diabetes mellitus without complications; J45.909 Unspecified asthma, uncomplicated
CPT/HCPCS: 36415; 36416; 71045; 74019; 74176; 80048; 80053; 81003; 81015; 82553; 83036; 83605; 83690; 84484; 84703; 85025; 87040; 87077; 87149; 87186; 90471; 90732; 93005; 96365; 96367; 96375; A4216; G0009; J0696; J1580; J1650; J2543; J2550; J3370; J7050; Q0162

== ENCOUNTER 2018-05-09 12:01 | Outpatient (CLI) | payer MEDICARE, OTHER ==
--- NOTE | 2018-05-16 13:20 | MMO ---
Bilateral MAMMO Bilat Screen [facility]. CLINICAL HISTORY: Patient is 53 years old and is seen for screening. The patient has the following family history of breast cancer: sister, at age 40 and mother. The patient has a history of cervical cancer. The patient has a history of left Ultrasound Guided Core Biopsy in December, - benign and left Excisional Biopsy in 1991 - benign. VIEWS: The views performed were: bilateral craniocaudal with tomosynthesis and bilateral mediolateral oblique with tomosynthesis. FILMS COMPARED: The present examination has been compared to prior imaging studies performed at [facility] on 12/19/2013, 01/02/2014 and 01/01/2016. MAMMOGRAM FINDINGS: There are scattered fibroglandular densities. There are benign appearing calcifications. A biopsy clip is seen in the left breast. There are no suspicious masses, calcifications or areas of architectural distortion. IMPRESSION: THERE IS NO MAMMOGRAPHIC EVIDENCE OF MALIGNANCY. A ROUTINE FOLLOW-UP MAMMOGRAM IN 1 YEAR IS RECOMMENDED. THE RESULTS OF THIS EXAM WERE SENT TO THE PATIENT. ACR BI-RADS Category 2 - Benign finding MAMMOGRAPHY NOTE: 1. A negative mammogram report should not delay a biopsy if a dominant of clinically suspicious mass is present. 2. Approximately 10% to 15% of breast cancers are not detected by mammography. 3. Adenosis and dense breasts may obscure an underlying neoplasm.
== END 2018-05-09 12:02 | disposition home or self-care (01) ==
LOC: BICMAMMO 12:01
PROVIDERS: ATTEND Nurse Practitioner Family
DX: Z12.31 Encounter for screening mammogram for malignant neoplasm of breast (principal); Z80.3 Family history of malignant neoplasm of breast; Z98.890 Other specified postprocedural states
CPT/HCPCS: 77063; 77067

== ENCOUNTER 2018-07-20 11:15 | Emergency (ER) | payer MEDICARE, OTHER ==
--- NOTE | 2018-07-20 11:54 | RAD ---
XR Chest Pa Lat STANDARD HISTORY: Cough COMPARISON: 04/21/2016 FINDINGS: The heart size is normal. The lungs are well expanded without focal areas of consolidation, pneumothorax or pleural effusions. IMPRESSION: No radiographic evidence of acute cardiopulmonary process.
== END 2018-07-20 13:05 | disposition home or self-care (01) ==
LOC: ERS 11:15
DX: J45.901 Unspecified asthma with (acute) exacerbation (principal); E11.9 Type 2 diabetes mellitus without complications; E03.9 Hypothyroidism, unspecified; K21.9 Gastro-esophageal reflux disease without esophagitis; I10 Essential (primary) hypertension; F31.9 Bipolar disorder, unspecified; Z79.899 Other long term (current) drug therapy; Z79.51 Long term (current) use of inhaled steroids
CPT/HCPCS: 71046; 94640; J7620

== ENCOUNTER 2020-06-26 12:33 | Outpatient (CLI) | payer MEDICARE, OTHER ==
[2020-06-26] MEDS ORDERED: Magnevist 469MG/ML 20 ML VIAL ONE (15:14)
== END 2020-06-26 12:34 | disposition home or self-care (01) ==
LOC: BICMRI 12:33
PROVIDERS: ATTEND Nurse Practitioner Acute Care
DX: G43.909 Migraine, unspecified, not intractable, without status migrainosus (principal); I67.82 Cerebral ischemia
CPT/HCPCS: 70553; 82565; A9579

== ENCOUNTER 2021-10-28 08:15 | Emergency (ER) | payer OTHER ==
[2021-10-28] MEDS ORDERED: Meclizine HCl 25 MG TAB ONE (10:07)
[2021-10-28] MEDS ORDERED: Ondansetron ODT 4 MG TAB ONE (10:07)
== END 2021-10-28 10:30 | disposition home or self-care (01) ==
LOC: ERS 08:15
DX: H66.91 Otitis media, unspecified, right ear (principal); E11.9 Type 2 diabetes mellitus without complications; E03.9 Hypothyroidism, unspecified; K21.9 Gastro-esophageal reflux disease without esophagitis; I10 Essential (primary) hypertension
CPT/HCPCS: 99283; Q0162

== ENCOUNTER 2022-03-03 18:27 | Emergency (ER) | payer OTHER ==
[2022-03-03] MEDS ORDERED: hydrOXYzine 25 MG TAB ONE (20:37)
[2022-03-03] MEDS ORDERED: Ondansetron ODT 4 MG TAB ONE (20:38)
== END 2022-03-03 21:40 | disposition home or self-care (01) ==
LOC: ERS 18:27
DX: L50.0 Allergic urticaria (principal); R11.2 Nausea with vomiting, unspecified; G89.29 Other chronic pain; M54.9 Dorsalgia, unspecified; I10 Essential (primary) hypertension; E11.9 Type 2 diabetes mellitus without complications; E03.9 Hypothyroidism, unspecified; K21.9 Gastro-esophageal reflux disease without esophagitis; Z79.84 Long term (current) use of oral hypoglycemic drugs; Z79.899 Other long term (current) drug therapy
CPT/HCPCS: 99282; Q0162

== ENCOUNTER 2024-01-06 16:03 | Emergency (ER) | payer OTHER ==
[2024-01-06] MEDS ORDERED: Acetaminophen 500 MG TAB ONE (17:20)
[2024-01-06] MEDS ORDERED: Metoclopramide HCl 10 MG (2 mL) VIAL ONE (17:21)
[2024-01-06] MEDS ORDERED: diphenhydrAMINE 50 MG/ML VIAL ONE (17:21)
[2024-01-06] MEDS ORDERED: Ketorolac Tromethamine 30 MG (1 mL) VIAL ONE (17:21)
== END 2024-01-06 18:52 | disposition home or self-care (01) ==
LOC: ERS 16:03
DX: G43.909 Migraine, unspecified, not intractable, without status migrainosus (principal); L08.9 Local infection of the skin and subcutaneous tissue, unspecified; I12.9 Hypertensive chronic kidney disease with stage 1 through stage 4 chronic kidney disease, or unspecified chronic kidney disease; E11.22 Type 2 diabetes mellitus with diabetic chronic kidney disease; N18.30 Chronic kidney disease, stage 3 unspecified; J45.909 Unspecified asthma, uncomplicated; E03.9 Hypothyroidism, unspecified; Z79.84 Long term (current) use of oral hypoglycemic drugs; Z79.51 Long term (current) use of inhaled steroids; Z79.899 Other long term (current) drug therapy; Z79.890 Hormone replacement therapy
CPT/HCPCS: 96374; 96375; 99282; J1200; J1885; J2765

== ENCOUNTER 2024-10-03 14:34 | Emergency (ER) | payer OTHER ==
[2024-10-03 15:57] LABS: #Basophils 0.07 10x3/uL (0.0-0.2); #Eosinophils 0.20 10x3/uL (0.0-0.7); #Monocytes 0.67 10x3/uL (0.11-0.59); #Neutrophils 3.71 10x3/uL (1.40-6.50); %Basophils 0.9 % (0.0-1.0); %Eosinophils 2.6 % (0.0-10.0); %Lymphocytes 39.1 % (21.0-51.0); %Monocytes 8.8 % (0.0-10.0); %Neutrophils 48.5 % (42.0-75.0); Hematocrit 43.1 % (36.0-47.0); Hemoglobin 13.9 g/dL (12.0-16.0); Mean Corpuscular Hemoglobin 27.0 pg (27.0-31.0); Mean Corpuscular Volume 83.9 fL (78.0-98.0); Platelet Count 249 10x3/uL (130-400); Red Blood Cell (RBC) Count 5.14 mill/uL (4.20-5.40); White Blood Cell (WBC) Count 7.65 10x3/uL (4.8-10.8)
[2024-10-03 16:16] LABS: ALT (SGPT) 157 U/L (Less than 34); AST (SGOT) 154 U/L (11-34); Albumin 3.8 g/dL (3.1-4.5); Alkaline Phosphatase 307 U/L (40-110); Anion Gap 14 mmol/L (10-20); BUN (Urea Nitrogen) 9 mg/dL (9.8-20.1); Bilirubin, Total 0.5 mg/dL (0.3-1.2); Calc. Creatinine Clearance 0 mL/min (70-130); Calcium 9.1 mg/dL (7.8-10.44); Carbon Dioxide 23 mmol/L (22-29); Chloride 104 mmol/L (98-107); Globulin 3.8 g/dL (2.4-3.5); Glucose 363 mg/dL (70-105); Lipase 33 U/L (8-78); Potassium 3.7 mmol/L (3.5-5.1); Sodium 137 mmol/L (136-145)
[2024-10-03] MEDS ORDERED: Metoclopramide HCl 10 MG (2 mL) VIAL ONE (16:32)
[2024-10-03 21:25] LABS: Bacteria/HPF None Seen HPF (None Seen); CAUTI Indications for Culture Dysuria,urgency,freq; Glucose, Urine (Dipstick) Greater than 1000 mg/dL (Negative); Leukocyte 500 Leu/uL (Negative); Protein, Urine (Dipstick) Negative (Neg-Trace); Specific Gravity, Urine 1.035 (1.002-1.036)
[2024-10-03 21:37] LABS: RBC/HPF 0-3 HPF (0-3); Urine Culture Reflex No No
== END 2024-10-03 20:06 | disposition home or self-care (01) ==
LOC: ERS 14:34
DX: K52.9 Noninfective gastroenteritis and colitis, unspecified (principal); K31.84 Gastroparesis; E86.0 Dehydration; E11.22 Type 2 diabetes mellitus with diabetic chronic kidney disease; I12.9 Hypertensive chronic kidney disease with stage 1 through stage 4 chronic kidney disease, or unspecified chronic kidney disease; N18.30 Chronic kidney disease, stage 3 unspecified; E03.9 Hypothyroidism, unspecified; Z79.890 Hormone replacement therapy; Z79.899 Other long term (current) drug therapy; Z79.4 Long term (current) use of insulin
CPT/HCPCS: 74176; 80053; 81001; 82962; 83690; 85025; 93005; 96361; 96372; 96374; 96375; 99284; J2765; J3010; 36416

== ENCOUNTER 2024-10-18 17:13 | Emergency (ER) | payer OTHER ==
[2024-10-18] MEDS ORDERED: diphenhydrAMINE 50 MG/ML VIAL ONE (19:22)
[2024-10-18] MEDS ORDERED: Acetaminophen 500 MG TAB ONE (19:22)
[2024-10-18] MEDS ORDERED: Ketorolac Tromethamine 30 MG (1 mL) VIAL ONE (19:22)
[2024-10-18] MEDS ORDERED: Metoclopramide HCl 10 MG (2 mL) VIAL ONE (19:22)
[2024-10-18] MEDS ORDERED: Benzonatate 100 MG CAP ONE (19:53)
[2024-10-18 21:01] LABS: #Basophils 0.09 10x3/uL (0.0-0.2); #Eosinophils 0.23 10x3/uL (0.0-0.7); #Monocytes 0.89 10x3/uL (0.11-0.59); #Neutrophils 4.62 10x3/uL (1.40-6.50); %Basophils 0.9 % (0.0-1.0); %Eosinophils 2.4 % (0.0-10.0); %Lymphocytes 38.4 % (21.0-51.0); %Monocytes 9.4 % (0.0-10.0); %Neutrophils 48.7 % (42.0-75.0); Hematocrit 44.7 % (36.0-47.0); Hemoglobin 14.8 g/dL (12.0-16.0); Mean Corpuscular Hemoglobin 26.6 pg (27.0-31.0); Mean Corpuscular Volume 80.4 fL (78.0-98.0); Platelet Count 272 10x3/uL (130-400); Red Blood Cell (RBC) Count 5.56 mill/uL (4.20-5.40); White Blood Cell (WBC) Count 9.49 10x3/uL (4.8-10.8)
[2024-10-18 21:18] LABS: ALT (SGPT) 33 U/L (Less than 34); AST (SGOT) 37 U/L (11-34); Albumin 4.0 g/dL (3.1-4.5); Alkaline Phosphatase 243 U/L (40-110); Anion Gap 19 mmol/L (10-20); BUN (Urea Nitrogen) 13 mg/dL (9.8-20.1); Bilirubin, Total 0.4 mg/dL (0.3-1.2); Calc. Creatinine Clearance 0 mL/min (70-130); Calcium 9.5 mg/dL (7.8-10.44); Carbon Dioxide 22 mmol/L (22-29); Chloride 93 mmol/L (98-107); Globulin 4.1 g/dL (2.4-3.5); Glucose 628 mg/dL (70-105); Lipase 35 U/L (8-78); Potassium 3.8 mmol/L (3.5-5.1); Sodium 130 mmol/L (136-145)
[2024-10-18] MEDS ORDERED: Insulin Glargine 30 UNITS/0.3 ML VIAL ONE (21:33)
[2024-10-18 22:07] LABS: Magnesium 1.6 mg/dL (1.6-2.6)
[2024-10-19 01:06] LABS: Actual Bicarbonate (HCO3v) 22.3 mEq/L (22-28); Base Excess -2.0 mEq/L (-2.0 to +3.0); Calcium, Ionized (venous) 1.07 mmol/L (1.16-1.32); Chloride (VBG) 99 mmol/L (98-106); Hematocrit-VBG 43 % (36.0-47.0); Hemoglobin (Hb) 14.6 g/dL (11.7-16.0); Potassium (VBG) 3.62 mmol/L (3.70-5.30); Sodium 133 mmol/L (133-146)
[2024-10-19 01:50] LABS: Anion Gap 14 mmol/L (10-20); BUN (Urea Nitrogen) 15 mg/dL (9.8-20.1); Calc. Creatinine Clearance 0 mL/min (70-130); Calcium 8.6 mg/dL (7.8-10.44); Carbon Dioxide 22 mmol/L (22-29); Chloride 100 mmol/L (98-107); Glucose 448 mg/dL (70-105); Potassium 3.5 mmol/L (3.5-5.1); Sodium 132 mmol/L (136-145)
[2024-10-19 04:20] LABS: Osmolality, Serum 295 mOsm/kg (275-295)
== END 2024-10-19 05:18 | disposition home or self-care (01) ==
LOC: ERS 17:13
DX: R51.9 Headache, unspecified (principal); E11.65 Type 2 diabetes mellitus with hyperglycemia; E87.1 Hypo-osmolality and hyponatremia; E11.22 Type 2 diabetes mellitus with diabetic chronic kidney disease; I12.9 Hypertensive chronic kidney disease with stage 1 through stage 4 chronic kidney disease, or unspecified chronic kidney disease; N18.30 Chronic kidney disease, stage 3 unspecified; E03.9 Hypothyroidism, unspecified; J45.909 Unspecified asthma, uncomplicated; Z79.4 Long term (current) use of insulin; Z79.51 Long term (current) use of inhaled steroids; Z79.890 Hormone replacement therapy; Z79.899 Other long term (current) drug therapy
CPT/HCPCS: 80048; 80053; 82010; 82805; 82962; 83605; 83690; 83735; 83930; 84100; 85025; 87081; 87428; 87430; 93005; J1200; J1815 ×2; J1885; J2765; 36415; 36416; 96361; 96374; 96375